=== PATIENT | male | born 1995 | race Two or more races ===

== ENCOUNTER 2024-05-12 15:18 | Emergency (ER) | payer OTHER ==
[~2024-05-12] VITALS: Ht 180.3 cm; Wt 102.1 kg
[2024-05-12] MEDS ORDERED: DEXAMETHASONE SODIUM PHOSPHATE 4 MG/ML VIAL ONE (17:06)
[2024-05-12] MEDS ORDERED: KETOROLAC TROMETHAMINE 60 MG VIAL IM ONE ×2 (17:06→17:15)
[2024-05-12] MEDS ORDERED: DEXAMETHASONE SODIUM PHOSPHATE 4 MG/ML VIAL IM ONE (17:15)
[2024-05-12] MEDS ORDERED: ORPHENADRINE CITRATE 100 MG TABLET PO ONE (17:15)
[2024-05-12] MEDS ORDERED: DICLOFENAC SODI75 MG PO (17:24)
== END 2024-05-12 18:16 | disposition home or self-care (01) ==
LOC: ER 15:19
DX: M94.0 Chondrocostal junction syndrome [Tietze] (principal)